=== PATIENT | male | born 1965 | race Hispanic/Latino ===

== ENCOUNTER 2018-04-03 21:17 | Emergency (ER) | payer OTHER ==
[2018-04-03 22:05] VITALS: TEMP 97.5; O2SAT 100
[2018-04-03] MEDS ORDERED: Morphine 4 MG/ML VIAL IVP STA (22:47)
[2018-04-03] MEDS ORDERED: Morphine 4 MG/ML VIAL ONE (22:54)
[2018-04-03 23:25] LABS: BASO % 0.3 % (0.0-2.0); EOS % 0.6 % (0.0-4.0); HEMOGLOBIN 14.4 g/dL (12.0-18.0); LYMPH # 1.3 K/uL (1.0-4.3); LYMPH % 17.6 % (20.0-40.0); MEAN CELL VOLUME 93.7 fl (80.0-94.0); MEAN CORPUSCULAR HEMOGLOBIN 31.9 pg (27.0-31.0); MEAN CORPUSCULAR HGB CONC 34.1 g/dL (33.0-37.0); MONO # 0.7 K/uL (0.0-0.8); MONO % 9.9 % (0.0-10.0); NEUT # 5.2 K/uL (1.8-7.0); NEUT % 71.6 % (50.0-75.0); NRBC % 0.1 % (0.0-0.0); RBC 4.51 Mil/uL (4.40-5.90); RED CELL DISTRIBUTION WIDTH 13.4 % (11.5-14.5); WHITE BLOOD COUNT 7.2 K/uL (4.8-10.8)
--- NOTE | 2018-04-03 23:25 | ED PDOC ---
HPI: Abdomen Time Seen by Provider: 04/03/18 22:34 Chief Complaint (Nursing): Abdominal Pain Chief Complaint (Provider): Abdominal Pain History Per: Patient History/Exam Limitations: no limitations Onset/Duration Of Symptoms: Days (x4) Location Of Pain/Discomfort: RLQ, LLQ Quality Of Discomfort: Cramping Associated Symptoms: Vomiting, Diarrhea, Loss Of Appetite. denies: Urinary Symptoms Additional Complaint(s): 52 y/o male with history of HTN, hypercholesterolemia, and kidney stones, presents to the ED complaining of x4 days of abdominal pain. Patient reports the pain to be cramping and is localized to his lower abdomen. Patient also reports associated diarrhea and vomiting. Patient states the the symptoms seemed to have resolved yesterday but came back more severely today. He has no appetite and denies taking any medication for pain. He denies fever, chills, black or bloody stools, or urinary symptoms. His last BM was today was described as pale, yellow, and shona-like. Patient's also had diarrhea with abdominal cramping but she has gotten better. Denies recent international travel. Past Medical History Reviewed: Historical Data, Nursing Documentation, Vital Signs Vital Signs: Last Vital Signs Temp 97.5 F L 04/03/18 22:01 Pulse 66 04/03/18 22:01 Resp 18 04/03/18 22:01 BP 156/100 H 04/03/18 22:01 Pulse Ox 100 04/03/18 22:01 - Medical History PMH: HTN, Hypercholesterolemia, Kidney Stones - Surgical History Other surgeries: Sinus Surgery, Right Wrist surgery and Right forearm surgery - Family History Family History: States: No Known Family Hx - Social History Current smoker - smoking cessation education provided: No Alcohol: Social (last drink Tuesday) Drugs: Denies - Home Medications Home Medications: Ambulatory Orders Medication Instructions Recorded Ciprofloxacin [Cipro] 500 mg PO BID 7 Days tab 04/04/18 Dicyclomine [Bentyl] 20 mg PO BID #30 tab 04/04/18 Ketorolac Tromethamine [Toradol] 10 mg PO BID #20 tab 04/04/18 metroNIDAZOLE [Flagyl] 500 mg PO BID 7 Days tab 04/04/18 - Allergies Allergies/Adverse Reactions: Allergies Allergy/AdvReac Type Severity Reaction Status Date / Time No Known Allergies Allergy Verified 04/03/18 22:46 Review of Systems ROS Statement: Except As Marked, All Systems Reviewed And Found Negative (as per HPI otherwise negative) Constitutional: Negative for: Fever, Chills Gastrointestinal: Positive for: Vomiting, Abdominal Pain, Diarrhea. Negative for: Constipation, Melena, Hematochezia Genitourinary Male: Negative for: Dysuria, Frequency, Incontinence Physical Exam - Reviewed Nursing Documentation Reviewed: Yes Vital Signs Reviewed: Yes - Physical Exam Appears: Positive for: In Acute Distress Head Exam: Positive for: ATRAUMATIC, NORMOCEPHALIC Skin: Positive for: Normal Color, Warm, Dry Eye Exam: Positive for: Normal appearance, EOMI, PERRL ENT: Positive for: Other (dry mucous membranes) Neck: Positive for: Painless ROM, Supple Cardiovascular/Chest: Positive for: Regular Rate, Rhythm. Negative for: Murmur Respiratory: Positive for: Normal Breath Sounds. Negative for: Respiratory Distress Gastrointestinal/Abdominal: Positive for: Soft, Tenderness (bilateral lower quadrant tenderness to palpation), Guarding (voluntary). Negative for: Mass, Rebound Back: Positive for: Normal Inspection. Negative for: L CVA Tenderness, R CVA T enderness Extremity: Positive for: Normal ROM. Negative for: Deformity Lymphatic: Negative for: Adenopathy Neurologic/Psych: Positive for: Alert, Oriented, Mood/Affect (anxious). Negative for: Motor/Sensory Deficits - Laboratory Results Result Diagrams: 04/03/18 23:00 04/03/18 23:00 - ECG O2 Sat by Pulse Oximetry: 100 (RA) Pulse Ox Interpretation: Normal Medical Decision Making Medical Decision Making: Time: 22:46 Initial Impression: lower abdominal pain and diarrhea Differential diagnosis included but not limited to colitis,diverticulitis, appendicitis, gastroenteritis, and dehydration Initial Plan: * CT Abd&Pelvis * CMP * Lact acid * Lipase * ED Urine * CBC w/ diff * PTT * Prothrombin time * IV Fluids * Morphine 4 mg * Zofran 8 mg * Blood culutre - Scribe Attestation: Documented by Javid Fuchs acting as a scribe for Ysabel Douglass MD. Provider Scribe Attestation: All medical record entries made by the Scribe were at my direction and personally dictated by me. I have reviewed the chart and agree that the record accurately reflects my personal performance of the history, physical exam, medical decision making, and the department course for this patient. I have also personally directed, reviewed, and agree with the discharge instructions and disposition. Disposition - Clinical Impression Clinical Impression: Enteritis - Disposition Disposition: Transfer of Care Disposition Time: 00:30 Condition: IMPROVED Prescriptions: Ciprofloxacin [Cipro] 500 mg PO BID 7 Days tab Dicyclomine [Bentyl] 20 mg PO BID #30 tab Ketorolac Tromethamine [Toradol] 10 mg PO BID #20 tab metroNIDAZOLE [Flagyl] 500 mg PO BID 7 Days tab Patient Signed Over To: Peewee Block Handoff Comments: Pending CT, reassessment and final ER disposition
[2018-04-03 23:30] LABS: PROTHROMBIN TIME 11.1 Seconds (9.8-13.1)
[2018-04-03 23:34] LABS: ALB/GLOB RATIO 1.5 (1.0-2.1); ALBUMIN 4.5 g/dL (3.5-5.0); ALT/SGPT 58 U/L (21-72); AST/SGOT 59 U/L (17-59); BLOOD UREA NITROGEN 20 mg/dl (9-20); GFR NON-AFRICAN AMERICAN > 60; LIPASE 110 U/L (23-300)
[2018-04-03] MEDS ORDERED: Iohexol 300 100 ML IJ ONE (23:50)
[2018-04-03] MEDS ORDERED: Sodium Chloride 0.9% 50 ML IV ONE (23:50)
--- NOTE | 2018-04-04 01:01 | ED PDOC ---
- Laboratory Results Result Diagrams: 04/03/18 23:00 04/03/18 23:00 Lab Results: PT 11.1 Seconds (9.8-13.1) 04/03/18 23:00 INR 1.0 04/03/18 23:00 APTT 32.0 Seconds (25.6-37.1) 04/03/18 23:00 Total Bilirubin 0.6 mg/dl (0.2-1.3) 04/03/18 23:00 AST 59 U/L (17-59) 04/03/18 23:00 ALT 58 U/L (21-72) 04/03/18 23:00 Alkaline Phosphatase 76 U/L (38-126) 04/03/18 23:00 Total Protein 7.6 G/DL (6.3-8.2) 04/03/18 23:00 Albumin 4.5 g/dL (3.5-5.0) 04/03/18 23:00 Globulin 3.1 gm/dL (2.2-3.9) 04/03/18 23:00 Albumin/Globulin Ratio 1.5 (1.0-2.1) 04/03/18 23:00 Lipase 110 U/L (23-300) 04/03/18 23:00 - ECG O2 Sat by Pulse Oximetry: 100 (RA) Pulse Ox Interpretation: Normal Medical Decision Making Medical Decision Making: Time: 00:00 Patient care endorsed from Dr. Douglass to provider pending CT. 01:38 CT Abd Pelvis FINDINGS: LUNG BASES: The lung bases appear clear. No pleural effusions are seen. LIVER: Unremarkable. GALLBLADDER AND BILE DUCTS: The gallbladder appears within normal limits. No radioopaque gallstones are seen. No biliary ductal dilatation is evident. PANCREAS: Unremarkable. SPLEEN: Unremarkable. ADRENAL GLANDS: Unremarkable. KIDNEYS, URETERS, AND BLADDER: Both kidneys are markedly lobulated demonstrating areas of cortical scarring and thinning. No evidence of a renal mass, calculus, or hydronephrosis. STOMACH AND BOWEL: Thick walled fluid filled duodenum and loops of jejunum as well as ileum compatible with enteritis. Infectious and inflammatory etiologies are considered. APPENDIX: No evidence of acute appendicitis on CT examination. PERITONEUM: No free fluid. No free air. LYMPH NODES: No lymphadenopathy is evident. REPRODUCTIVE: Unremarkable as visualized. VASCULATURE: No evidence of abdominal aortic aneurysm. BONES: No aggressive appearing osseous lesion. No acute osseous pathology evident. IMPRESSION: 1. Enteritis. Infectious and inflammatory etiologies are considered. 2. Both kidneys are markedly lobulated demonstrating areas of cortical scarring and thinning. No evidence of a renal mass, calculus, or hydronephrosis. Patient stateas he's feeling much better after the toradol. Tolerating PO, appearing very well Patient states he will contact his GI doctor, Dr. Green, tomorrow Return precautions given Scribe Attestation: Documented by Javid Fuchs acting as a scribe for Peewee Block MD. Provider Scribe Attestation: All medical record entries made by the Scribe were at my direction and personally dictated by me. I have reviewed the chart and agree that the record accurately reflects my personal performance of the history, physical exam, medical decision making, and the department course for this patient. I have also personally directed, reviewed, and agree with the discharge instructions and disposition. Disposition - Clinical Impression Clinical Impression: Enteritis - POA Present On Arrival: None - Disposition Referrals: Homero Green MD [Medical Doctor] - Disposition: Routine/Home Disposition Time: 01:53 Condition: IMPROVED Prescriptions: Ciprofloxacin [Cipro] 500 mg PO BID 7 Days tab Dicyclomine [Bentyl] 20 mg PO BID #30 tab Ketorolac Tromethamine [Toradol] 10 mg PO BID #20 tab metroNIDAZOLE [Flagyl] 500 mg PO BID 7 Days tab Instructions: Acute Abdomen (Belly Pain), Adult (DC) Forms: [employer] ([place])
[2018-04-04 02:02] VITALS: BP 113/63; PULSE 67; RESP 20
--- NOTE | 2018-04-04 11:17 | CT ---
Date of service: 04/03/2018 PROCEDURE: CT Abdomen and Pelvis.. HISTORY: Lower abdominal pain COMPARISON: No prior study available for comparison.. TECHNIQUE: Contiguous helical/transaxial images of the abdomen and pelvis performed following intravenous injection of approximately 90 cc Omnipaque 300 contrast material. Additional 2D sagittal and coronal reformats generated. Radiation dose: Total exam DLP = 465.38 mGy-cm. This CT exam was performed using one or more of the following dose reduction techniques: Automated exposure control, adjustment of the mA and/or kV according to patient size, and/or use of iterative reconstruction technique. FINDINGS: LOWER THORAX: Heart size is within range of normal. No significant pericardial effusion. There is a small hiatal hernia. Mild passive/dependent type atelectasis both posterior lower lung roberts. The mild scarring also seen in the middle lobe and lingular regions. LIVER: Liver is borderline/mildly enlarged measuring over 18 cm in CC dimension. Mild very mild fatty hepatic infiltration. No obvious hepatic mass collection or calcification. Portal and splenic veins are opacified. GALLBLADDER AND BILE DUCTS: Gallbladder physiologically distended. No evidence of intraluminal gallbladder calculi.. PANCREAS: Pancreas appears slightly atrophic and fatty replaced. No pancreatic masses collections calcifications or ductal dilatation. SPLEEN: Spleen exhibits normal size mid and attenuation pattern without mass collection or calcification.. ADRENALS: No adrenal lesions.. KIDNEYS AND URETERS: There are a cortical scarring changes both kidneys with parenchymal volume loss right greater than left.. No evidence of nephrolithiasis or hydronephrosis.. BLADDER: Urinary bladder is incompletely distended which in part accounts for thick-walled appearance. Muscular hypertrophy presumably contributes. Possibility of cystitis or other intrinsic/invasive wall lesion not excluded. Recommend correlation with urinalysis.. REPRODUCTIVE: Unremarkable. APPENDIX: Normal-appearing appendix best seen on axial series 3 image number [id number].. BOWEL: Evaluation of the bowel is slightly limited due to incomplete opacification. The stomach is incompletely distended with fairly significant wall thickening. Findings in part due to incomplete distention however the possibility of a gastritis also suspected given the presence of multiple of mild thick-walled loops of small bowel including the duodenal wall consistent with the concomitant enteritis. Stool and air seen throughout the cecum, at ascending and proximal transverse colon however most the remaining colon is collapsed. PERITONEUM: Unremarkable. No fluid collection. No free air. Small fat containing umbilical hernia. LYMPH NODES: Unremarkable. No enlarged lymph nodes. VASCULATURE: Unremarkable. No aortic aneurysm. No aortic atherosclerotic calcification or mural plaque present. BONES: Mild multilevel degenerative spondylosis of the lower thoracic and lumbar spine. No acute compression fractures no retropulsed fragments OTHER FINDINGS: None. IMPRESSION: Findings consistent with enteritis and possible gastritis. Clinical correlation recommended. Borderline/mild hepatomegaly with mild to moderate fatty hepatic infiltration. Bilateral renal cortical scarring changes and parenchymal volume loss.
== END 2018-04-04 02:05 | disposition home or self-care (01) ==
LOC: H.ER 21:17
DX: K52.9 Noninfective gastroenteritis and colitis, unspecified (principal); I10 Essential (primary) hypertension; Z87.442 Personal history of urinary calculi; Z79.899 Other long term (current) drug therapy
CPT/HCPCS: 74177; 80053; 83605; 83690; 85025; 85610; 85730; 87040; 96374; 99283; J1885; J2270; J2405; J7042; Q9967